=== PATIENT | female | born 1985 | race Caucasian/White ===

== ENCOUNTER 2019-07-20 17:09 | Emergency (ER) | payer OTHER ==
[2019-07-20 17:17] VITALS: Wt 109.1 kg
[2019-07-20] MEDS ORDERED: LEXAPRO20 MG PO (17:18)
[2019-07-20] MEDS ORDERED: PROTONIX40 MG PO (17:19)
[2019-07-20] MEDS ORDERED: LOPRESSOR25 MG PO (17:19)
[2019-07-20] MEDS ORDERED: KLONOPIN1 MG PO (17:19)
[2019-07-20] MEDS ORDERED: TORADOL10 MG PO (18:02)
[2019-07-20] MEDS ORDERED: ROBAXIN500 MG PO (18:02)
[2019-07-20 18:47] VITALS: BP 123/66
== END 2019-07-20 18:49 | disposition home or self-care (01) ==
LOC: D.ER 17:09
DX: S39.012A Strain of muscle, fascia and tendon of lower back, initial encounter (principal); X58.XXXA Exposure to other specified factors, initial encounter; S16.1XXA Strain of muscle, fascia and tendon at neck level, initial encounter; M54.10 Radiculopathy, site unspecified; S29.012A Strain of muscle and tendon of back wall of thorax, initial encounter